=== PATIENT | male | born 1970 | race American Indian/Alaskan Native ===

== ENCOUNTER 2018-12-04 19:12 | Emergency (ER) | payer MEDICAID ==
[2018-12-04] MEDS ORDERED: NACL 0.9% 1000 ML 1,000 ML IV ONE (20:13)
--- NOTE | 2018-12-04 20:16 | Emergency Department Report ---
HPI - General Chief Complaint: Syncope Time Seen by Provider: 12/04/18 19:48 - HPI HPI: 47-year-old after [place] male presents to the emergency department via EMS from his alcohol rehabilitation center after passing out. The patient is a poor historian about the events that occurred but is awake, alert and oriented. He says that he went to the rehabilitation center around Father's Day, 3 or 4 days ago. He says the last thing that he remembers is waking up surrounded by EMS and being brought here. He denies any physical complaints. He is a tobacco smoker but denies any illicit drug use. He otherwise denies any past medical history. He did not receive anything for his symptoms prior to arrival. ED Past Medical Hx - Past Medical History Additional medical history: pancreatitis. - Surgical History Past Surgical History?: No - Social History Smoking Status: Current Every Day Smoker Substance Use Type: Alcohol - Medications Home Medications: Home Medications Medication Instructions Recorded Confirmed Last Taken Type No Known Home Medications [No 05/28/13 05/28/13 Unknown History Reported Home Medications] ED Review of Systems ROS: Stated complaint: SYNCOPE Other details as noted in HPI Comment: All other systems reviewed and negative Constitutional: denies: chills, fever Eyes: denies: eye pain, vision change ENT: denies: ear pain, throat pain Respiratory: denies: cough, shortness of breath Cardiovascular: syncope. denies: chest pain Gastrointestinal: denies: abdominal pain, vomiting Genitourinary: denies: dysuria, discharge Musculoskeletal: denies: back pain, arthralgia Skin: denies: rash, lesions Neurological: denies: headache, weakness Physical Exam - Physical Exam Vital Signs: Vital Signs 12/04/18 12/04/18 19:30 19:47 Temperature 98.1 F Pulse Rate 102 H Respiratory 15 Rate Blood Pressure 134/56 [Left] O2 Sat by Pulse 96 97 Oximetry Physical Exam: GENERAL: The patient is well-developed well-nourished. HENT: Normocephalic. Atraumatic. Patient has moist mucous membranes. EYES: Extraocular motions are intact. Pupils equal reactive to light bilaterally. No nystagmus. NECK: Supple. Trachea is midline. CHEST/LUNGS: Clear to auscultation. There is no respiratory distress noted. HEART/CARDIOVASCULAR: Regular. There is no tachycardia. There is no murmur. ABDOMEN: Abdomen is soft, nontender. Patient has normal bowel sounds. There is no abdominal distention. SKIN: Skin is warm and dry. NEURO: The patient is awake, alert, and cooperative. The patient has no focal neurologic deficits. The patient has normal speech. Cranial nerves II through XII grossly intact. MUSCULOSKELETAL: There is no tenderness or deformity. There is no limitation range of motion. There is no evidence of acute injury. ED Course Vital Signs 12/04/18 12/04/18 19:30 19:47 Temperature 98.1 F Pulse Rate 102 H Respiratory 15 Rate Blood Pressure 134/56 [Left] O2 Sat by Pulse 96 97 Oximetry - Consultations Consultation #1: After seeing the CT scan results of the head showing the small masses and vasogenic edema, I called and spoke with Dr. Truong Quinteros, neurosurgery, at [facility]. She agreed to see the patient as a consult but asked for the patient to be admitted to the hospitalist service. I then spoke with the hospitalist correspondent, Dr. Gaines, who accepted the patient for transfer and admission. 12/04/18 22:43 ED Medical Decision Making - Lab Data Result diagrams: 12/04/18 20:16 12/04/18 20:16 - EKG Data -: EKG Interpreted by Me EKG shows normal: sinus rhythm (PVCs), axis (left axis deviation), intervals, QRS complexes, ST-T waves Rate: tachycardia (102 bpm) - EKG Data When compared to previous EKG there are: previous EKG unavailable Interpretation: normal EKG (with PVCs) - Radiology Data Radiology results: report reviewed PROCEDURE: CT HEAD/BRAIN WO CON TECHNIQUE: Computerized tomography of the head was performed without contrast material. CT DOSE LENGTH PRODUCT: 1035.5 mGycm HISTORY: Syncope COMPARISONS: None . FINDINGS: Skull and scalp: Normal . Paranasal sinuses: Mild mucosal thickening in the maxillary sinuses is noted. . Ventricles and subarachnoid spaces: Normal . No midline shift is noted. No evidence for herniation is noted. Cerebrum: 1. There is a well-defined hyperdense 1.7 x 1.5 cm mass in the high right frontal region (axial image 46/72). There is low-density vasogenic edema surrounding this focus in the right frontal lobe. 2. There is a second peripheral focus measuring approximately 1.0 x 0.5 cm in the lateral left parietal lobe (axial image 45/72). There is surrounding low-density vasogenic edema. There is a third area of vasogenic edema in the right occipital lobe, however, well-defined underlying mass is not clearly delineated but suspected. Cerebellum and brainstem: No evidence of hemorrhage, acute infarction or mass . Vasculature: Normal . Other: None . ASPECTS: 10 IMPRESSION: Multiple focal areas of vasogenic edema bilaterally with at least 2 of the regions showing an underlying distinct mass. Findings are suspicious for metastatic disease, possibly melanoma or lung cancer.. MRI is recommended. - Medical Decision Making This patient presented to the emergency department after having a syncopal episode. This occurred at an alcohol detox/rehabilitation center but other than the episode of passing out the patient does not appear to have any obvious withdrawal symptoms and did receive treatment for withdrawal while he was there. As part of his workup, the patient had a CT scan of the head without contrast that showed 3 areas of vasogenic edema, 2 of which have a small masses. No bleed or midline shift. Patient's labs were unremarkable. On examination he is awake, alert, oriented and without any focal, motor or sensory deficits and his cranial nerves are intact. He is a little bit confused or at least has poor recollection of what occurred prior to presentation here. With the CT scan findings, I called and spoke with neurosurgery and the hospitalist service at [facility] and the patient was accepted for transfer and admission. I spoke with the patient regarding the labs, imaging results and plan for transfer and he understands and agrees to the plan. - Differential Diagnosis orthostatic hypotension, vasovagal, malignancy, dysrhythmia Critical Care Time: Yes Critical care time in (mins) excluding proc time.: 31 Critical care attestation.: If time is entered above; I have spent that time in minutes in the direct care of this critically ill patient, excluding procedure time. Critical care time was spent on this patient and during his initial evaluation, multiple re- evaluations, discussion with the radiologist, neurosurgery and hospitalist services, as well as multiple discussions with the patient and his . Critical Care Time: 31 minutes ED Disposition Clinical Impression: Vasogenic brain edema, Brain mass Syncope Qualifiers: Syncope type: unspecified Qualified Code(s): R55 - Syncope and collapse Disposition: DC/TX-70 ANOTHER TYPE HLTHCARE Is pt being admited?: No Condition: Serious Time of Disposition: 00:56
[2018-12-04 20:49] LABS: Basophils # (Auto) 0.1 K/mm3 (0.0-0.1); Basophils % (Auto) 0.5 % (0.0-1.8); Eosinophils # (Auto) 0.1 K/mm3 (0.0-0.4); Eosinophils % (Auto) 0.6 % (0.0-4.3); Hematocrit 42.4 % (35.5-45.6); Hemoglobin 14.4 gm/dl (11.8-15.2); Lymphocytes # (Auto) 1.1 K/mm3 (1.2-5.4); Lymphocytes % (Auto) 10.9 % (13.4-35.0); Mean Corpuscular HGB Conc 34 % (32-34); Mean Corpuscular Volume 101 fl (84-94); Monocytes # (Auto) 0.8 K/mm3 (0.0-0.8); Monocytes % (Auto) 8.2 % (0.0-7.3); Platelet Count 344 K/mm3 (140-440); Red Blood Count 4.19 M/mm3 (3.65-5.03)
--- NOTE | 2018-12-04 20:54 | Cat Scan Report ---
PROCEDURE: CT HEAD/BRAIN WO CON TECHNIQUE: Computerized tomography of the head was performed without contrast material. CT DOSE LENGTH PRODUCT: 1035.5 mGycm HISTORY: Syncope COMPARISONS: None . FINDINGS: Skull and scalp: Normal . Paranasal sinuses: Mild mucosal thickening in the maxillary sinuses is noted. . Ventricles and subarachnoid spaces: Normal . No midline shift is noted. No evidence for herniation i s noted. Cerebrum: 1. There is a well-defined hyperdense 1.7 x 1.5 cm mass in the high right frontal region (axial image 46/72). There is low-density vasogenic edema surrounding this focus in the right frontal lobe. 2. There is a second peripheral focus measuring approximately 1.0 x 0.5 cm in the lateral left pariet al lobe (axial image 45/72). There is surrounding low-density vasogenic edema. There is a third area of vasogenic edema in the right occipital lobe, however, well-defined underlyin g mass is not clearly delineated but suspected. Cerebellum and brainstem: No evidence of hemorrhage, acute infarction or mass . Vasculature: Normal . Other: None . ASPECTS: 10 IMPRESSION: Multiple focal areas of vasogenic edema bilaterally with at least 2 of the regions showin g an underlying distinct mass. Findings are suspicious for metastatic disease, possibly melanoma or l [place] cancer.. MRI is recommended. This document is electronically signed by Madiha Santizo MD.. , December 04 2018 08:52:36 PM ET
[2018-12-04 21:05] LABS: Bilirubin,Urine NEG (Negative); Blood,Urine NEG (Negative); Color,Urine Yellow (Yellow); Mucus,Urine FEW /HPF; Urobilinogen,Urine < 2.0 mg/dL (<2.0); WBC,Urine < 1.0 /HPF (0.0-6.0)
[2018-12-04 21:17] LABS: Amphetamine Screen,Urine PRESUMPTIVE NEGATIVE; Cocaine Screen,Urine PRESUMPTIVE NEGATIVE; Methadone Screen,Urine PRESUMPTIVE NEGATIVE; Opiate Screen,Urine PRESUMPTIVE NEGATIVE
[2018-12-04 21:21] LABS: Alanine Aminotransferase 82 units/L (7-56); Albumin 4.1 g/dL (3.9-5); BUN/Creatinine Ratio 6; Blood Urea Nitrogen 5 mg/dL (9-20); Calcium 9.4 mg/dL (8.4-10.2); Hemolysis Index 7
[2018-12-04 21:51] LABS: Benzodiazepines Screen,Urine PRESUMPTIVE POSITIVE; Cannabinoid Screen,Urine PRESUMPTIVE POSITIVE
[2018-12-04] MEDS ORDERED: KEPPRA 1,000 MG/NS 0.75% 100ML 1,000 MG/100 ML BAG IV ONE (22:10)
[2018-12-04 23:52] VITALS: BP 145/70
== END 2018-12-04 23:25 | disposition other institution (70) ==
LOC: ED 19:12
DX: G93.6 Cerebral edema (principal); G93.89 Other specified disorders of brain; F17.200 Nicotine dependence, unspecified, uncomplicated
CPT/HCPCS: 36415; 70450; 80053; 80307; 81001; 84443; 84484; 85025; 93005; 93010; 96360; 99291; G0480; J7030; 80320